=== PATIENT | female | born 1970 | race Two or more races ===

== ENCOUNTER 2025-06-26 16:49 | Inpatient (IN) | payer MEDICAID, SELFPAY ==
[2025-06-26] VITALS (12 sets, daily range): BP systolic 94–142; BP diastolic 55–82; PULSE 76–92; RESP 15–95; TEMP 35.9–36.8; O2SAT 92–99; BMI 25.5
[2025-06-26] MEDS: EPINEPHrine INJ 1 MG/ML AMP 0.3 MG IM (16:56)
[2025-06-26] MEDS: MethylPREDNISolone SOD SUCC 62.5 MG/ML 2ML VIAL 125 MG IVP (16:59)
[2025-06-26] MEDS: FAMOTIDINE INJ 10 MG/ML VIAL 2 ML 40 MG IVP (17:04)
[2025-06-26] MEDS: SODIUM CHLORIDE 0.9% 1000 ML 1,000 ML 999 ML IV (17:05)
[2025-06-26] MEDS: ALBUTEROL RT 2.5 MG/0.5 ML NEBU 10 MG INH (17:05)
--- NOTE | 2025-06-26 17:08 | PD.EDALLER ---
ED Allergic Reaction RME/HPI General Chief complaint: Allergic Reaction Stated complaint: ALLERIGIC REACTION Time Seen by Provider: 06/26/25 16:54 Source: patient and EMS Arrival date/time: 06/26/25 16:49 RME / HPI RME / HPI narrative: Patient is a 54-year-old female with no significant past medical history is in Emergency Department concerns for anaphylactic reaction. Patient states that she had a nectarine today, it was the first time that she has ever had a nectarine, immediately developed a rash, swelling in her lips and difficulty breathing. Prior to this patient felt fine. 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 Denies drugs alcohol smoking. Denies recent travel sick contacts. Per EMS they provided intramuscular epinephrine 0.4 mg as well as Benadryl because patient was hypotensive in the field, and was having difficulty breathing. MD complaint: allergic reaction Related Data Previous Rx's ?Medication ?Instructions ?Recorded amoxicillin 875 mg tablet 875 mg PO BID #20 tabs 04/02/22 Allergies Allergy/AdvReac Type Severity Reaction Status Date / Time nectarine Allergy Verified 06/26/25 16:55 No Known Drug Allergies Allergy Verified 06/26/25 16:55 ED Exam General General appearance: Present other (Patient is in distress) Head Head exam: Present atraumatic and other (Patient with hives on her face, swelling of her lower lip) Eye Eye exam: Present normal appearance, PERRL and EOMI ENT ENT exam: Present normal oropharynx and other (Swelling of her lower lip, difficulty speaking,) Neck Neck exam: Present normal inspection (Hives) and other (Stridor) Chest Chest inspection: Present symmetric chest wall rise and other (Tachypneic) Respiratory Respiratory exam: Present wheezes Cardiovascular Cardiovascular exam: Present regular rate and normal rhythm Abdominal Exam Abdominal exam: Present soft; Absent distention, tenderness, guarding, rebound or rigidity Extremities Exam Extremities exam: Present full ROM Neurological Exam Neurological exam: Present alert, CN II-XII intact and motor sensory deficit Skin Skin exam: Present warm, dry and rash (Patient with diffuse raised erythematous rash, diffuse wheals, with areas of coalescence, pruritic, upper extremities, lower extremities, abdomen, face) Course Quality Measures none Orders Category Date Time Status Admit to Inpatient Status Routine Admission 06/26/25 18:19 Active Patient Condition Routine Admission 06/26/25 18:19 Ordered Insert IV NOW Care 06/26/25 16:57 Active Miscellaneous Nursing Order NOW Care 06/26/25 18:19 Active Nurse Swallow Screen X1 Care 06/26/25 18:19 Active Diet Regular Diet 06/26/25 Breakfast Active CBC AM DRAW Lab 06/27/25 05:00 Ordered CBC Stat Lab 06/26/25 17:35 Completed CMP [Comprehensive Metabolic Panel] Stat Lab 06/26/25 17:35 Completed Comprehensive Metabolic Panel AM DRAW Lab 06/27/25 05:00 Ordered Drug Screen,Urine Stat Lab 06/26/25 17:30 Ordered HCG,Qualitative Serum Stat Lab 06/26/25 17:35 Completed UA, C/S IF [Urinalysis, C/S if Indicated] Stat Lab 06/26/25 17:23 Ordered ALBUTEROL RT 0.5ml [Proventil Rt 0.5ml] Med 06/26/25 16:57 Discontinued 10 mg .ROUTE .STK-MED ONE ALBUTEROL RT 0.5ml [Proventil Rt 0.5ml] Med 06/26/25 17:04 Discontinued 10 mg INH X1 ONE Acetaminophen Tab [Tylenol Tab] Med 06/26/25 18:19 Active 650 mg PO Q4HR PRN Albuterol/Ipratr Rt Allie [Duoneb Rt Allie] Med 06/26/25 19:00 Active 3 ml INH Q6HRRT DiphenhydrAMINE INJ [Benadryl Inj] Med 06/26/25 16:59 Discontinued 50 mg IVP X1 ONE EPINEPHrine Inj [Adrenalin Inj] Med 06/26/25 16:51 Discontinued 0.3 mg IM X1 ONE EPINEPHrine Inj [Adrenalin Inj] Med 06/26/25 17:00 Discontinued 0.5 mg IM X1 ONE Enoxaparin [Lovenox] Med 06/27/25 09:00 Active 40 mg SC QDAY Famotidine Inj [Pepcid Inj] Med 06/26/25 16:58 Discontinued 40 mg IVP X1 ONE MethylPREDNISolone.* [SoluMEDROL Inj] Med 06/26/25 16:52 Discontinued 125 mg IVP X1 ONE Ringers Lactated 1000 ml [Lactated Ringers] 1,000 ml Med 06/26/25 16:53 Discontinued IV 999 mls/hr Sodium Chloride 0.9% 1000 ml [Ns] 1,000 ml Med 06/26/25 17:03 Discontinued IV 999 mls/hr Sodium Chloride Rt Allie 0.9% [NS Rt Allie 0.9%] Med 06/26/25 17:04 Active 3 ml INH PRN PRN mg Hyd/Al Hyd/Maria Esther Susp [Maalox Susp] Med 06/26/25 18:19 Active 30 ml PO Q4HR PRN Code Status Routine Oth 06/26/25 18:19 Ordered Oxygen Delivery PRN RT 06/26/25 18:19 Active Vital Signs Vital signs: Vital Signs Pulse Rate 92 06/26/25 16:56 Blood Pressure 111/82 06/26/25 16:56 Allergic Reaction MDM Narrative MDM Narrative:: Patient is a 54-year-old female is in the emergency department with concerns for allergic reaction. Patient ate a nectarine, and developed hives difficulty breathing. Patient was transported to the emergency department. Concern for anaphylactic reaction given patient with respiratory distress and hemodynamic instability. Immediately placed patient in resuscitation room, obtain IV access. Provided intramuscular dose of epinephrine, 0.3 mg 125 mg of Solu-Medrol as well as 50 mg of IV Benadryl. Also ordered famotidine. Provided patient with a liter of fluids, and an hour-long breathing treatment of albuterol. Patient was closely monitored, symptoms significantly proved no longer having stridor, swelling on her face improved, wheals on patient's upper extremities chest abdomen also resolved. Once patient was stabilized, she stated that she took multiple Benadryl's at home and called 911 after she took the Benadryl. Unclear what the dosage was. States that she has a history of cerebral aneurysms. Unclear if they were clipped. 5:23p patient heart rate 75, blood pressure 142/61 satting at 100% receiving her breathing treatment, respiratory rate 17-20. Patient nondistressed. 5:24p discussed case with poison control given concern for amount of benadryl consumed. Given anaphylactic reaction and symptoms on presentation less likely to have toxicity. Has risk of excess sleepiness, possible agitation. If excessive agitation can give benzos. Check EKG for QRS prolongation, otherwise supportive care. Discussed case with ICU, kindly accepts patient for admission for closer monitoring given anaphylactic reaction, multiple doses of epinephrine provided, and multiple doses of Benadryl consumed throughout the day. Patient data External records reviewed:: [facility] previous records Clinical information provided by:: patient and EMS Social determinants that could affect healthcare access:: none Patient has the following chronic illnesses:: Allergies to statins. How is presenting disease/condition affected by chronic disease/condition?: caused by Evaluation data The following diagnostics were reviewed and interpreted by me:: lab results and EKG tracing(s) Lab and/or radiology exams considered but not ordered:: none Interpretation Summary: See MDM Medications / Prescriptions Medications or Prescriptions considered but not ordered:: None Medication administrations:: Medication Administration History Acetaminophen (Acetaminophen 325 Mg Tablet) 650 mg PO Q4HR PRN PRN Reason: PAIN SCALE 1-3 (mild Stop: 07/26/25 18:18 Al Hydrox/Mg Hydrox/Simethicone (Mg Hyd/Al Hyd/Maria Esther (Maalox Reg) Susp 30 Ml Udc) 30 ml PO Q4HR PRN PRN Reason: Heartburn or Upset Stomach Stop: 07/26/25 18:18 Albuterol/Ipratropium (Albuterol/Ipratropium (Duoneb) Rt Allie 3 Ml Nebu) 3 ml INH Q6HRRT HUEY Stop: 07/26/25 18:59 Last Admin: 06/26/25 18:51 Dose: 3 ml Documented By: [facility] Enoxaparin Sodium (Enoxaparin Sod Inj 40 Mg/0.4 Ml Syringe) 40 mg SC QDAY [facility] Stop: 07/11/25 08:59 Sodium Chloride (Sodium Chloride Rt Allie 0.9% 3 Ml Nebu) 3 ml INH PRN PRN PRN Reason: SOLN Stop: 07/26/25 17:03 Discontinued Medications Albuterol (Albuterol Rt 2.5 Mg/0.5 Ml Nebu) Confirm Administered Dose 10 mg .ROUTE .STK-MED ONE Stop: 06/26/25 16:58 Last Admin: 06/26/25 17:06 Dose: Not Given Documented By: [facility] Non-Admin Reason: Duplicate Medication on eMAR Albuterol (Albuterol Rt 2.5 Mg/0.5 Ml Nebu) 10 mg INH X1 ONE Stop: 06/26/25 17:05 Last Admin: 06/26/25 17:05 Dose: 10 mg Documented By: [facility] Diphenhydramine HCl (Diphenhydramine Inj 50 Mg/Ml Vial) 50 mg IVP X1 ONE Stop: 06/26/25 17:00 Last Admin: 06/26/25 17:04 Dose: 50 mg Documented By: KARY Epinephrine HCl (Epinephrine Inj 1 Mg/Ml Amp) 0.3 mg IM X1 ONE Stop: 06/26/25 16:52 Last Admin: 06/26/25 16:56 Dose: 0.3 mg Documented By: MILVIA Comments: MEDICATION PULLED FROM CRASH CART AND ADMINISTERED BY RUTHY JONES Epinephrine HCl (Epinephrine Inj 1 Mg/Ml Amp) 0.5 mg IM X1 ONE Stop: 06/26/25 17:01 Last Admin: 06/26/25 17:26 Dose: Not Given Documented By: KARY Non-Admin Reason: Cancelled by Provider Comments: MED TAKEN FROM CARSH CART AND OPEN, BUT DID NOT USE Famotidine (Famotidine Inj 10 Mg/Ml Vial 2 Ml) 40 mg IVP X1 ONE Stop: 06/26/25 16:59 Last Admin: 06/26/25 17:04 Dose: 40 mg Documented By: KARY Lactated Ringer's (Lactated Ringers) 1,000 mls @ 999 mls/hr IV .Q1H1M ONE Stop: 06/26/25 17:53 Last Admin: 06/26/25 17:26 Dose: Not Given Documented By: KARY Non-Admin Reason: Cancelled by Provider Sodium Chloride (Ns) 1,000 mls @ 999 mls/hr IV .Q1H1M ONE Stop: 06/26/25 18:03 Last Admin: 06/26/25 17:05 Dose: 999 mls/hr Documented By: KARY Methylprednisolone Sodium Succinate (Methylprednisolone Sod Succ 62.5 Mg/Ml 2ml Vial) 125 mg IVP X1 ONE Stop: 06/26/25 16:53 Last Admin: 06/26/25 16:59 Dose: 125 mg Documented By: MILVIA See above Consultations Consultation(s) initiated? (list below): Yes Consultation #1 (Physician, Specialty, Details): ICU, see MDM Diagnosis Differential Diagnosis allergic reaction: anaphylaxis Most likely diagnosis given after review of the tests above:: See MDM Admission Indicated Admission indicated?: indicated Admission Request Was there a request for admission?: Yes Admission Attestation Admission request attestation: Discussed case with Hospitalist service regarding admission. Discussed patients ED course, exam findings, labs, and radiology results. The Hospitalist [agrees] to accept the patient for admission. Disposition Plan Disposition Plan: Admit Critical Care Time Critical Care Time Total Critical Care Time (min.): 45 Attestation: Critical Care Procedure Note Due to a high probability of clinically significant, life threatening deterioration, the patient required my highest level of preparedness to intervene emergently and I personally spent this critical care time directly and personally managing the patient. This critical care time included obtaining a history; examining the patient; pulse oximetry; ordering and review of studies; arranging urgent treatment with development of a management plan; evaluation of patient's response to treatment; frequent reassessment; and, discussions with other providers. This critical care time was performed to assess and manage the high probability of imminent, life-threatening deterioration that could result in multi-organ failure. It was exclusive of separately billable procedures and treating other patients and teaching time. Please see MDM section and the rest of the note for further information on patient assessment and treatment. Discharge Plan Prescriptions/Referrals Prescriptions/Med Rec: No Action amoxicillin 875 mg tablet 875 mg PO BID Qty: 20 0RF Referrals: Sven Castle MD [Primary Care Provider] - In 1 week Problem List Clinical Impression: Anaphylaxis Patient/Caregiver Discharge Instructions Print Language: Indonesian
[2025-06-26 17:40] LABS: Basophils # (Auto) 0.0 Thou/mm3 (0.0-0.2); Basophils % (Auto) 0 % (0-2.5); Eosinophils # (Auto) 0.3 Thou/mm3 (0.0-0.5); Eosinophils % (Auto) 2 % (0-10); Hematocrit 44.0 % (36.0-46.0); Hemoglobin 14.8 g/dL (12.0-16.0); Immature Granulocytes Auto 0.10 Thou/mm3 (0.00-0.00); Lymphocytes # (Auto) 6.8 Thou/mm3 (1.0-4.8); Lymphocytes % (Auto) 31 % (10-50); Mean Corpuscular HGB Conc 33.6 g/dl (31.0-37.0); Mean Corpuscular Hemoglobin 30.3 pg (25.0-35.0); Mean Corpuscular Volume 90 fL (80-100); Monocytes # (Auto) 1.5 Thou/mm3 (0.0-0.8); Monocytes % (Auto) 7 % (0-12); Neutrophils # (Auto) 12.9 Thou/mm3 (1.8-7.7); Neutrophils % (Auto) 60 % (37-80); Nucleated Red Blood Cell # 0.00 Thou/mm3 (0.00-0.00); Nucleated Red Blood Cell % 0 /100 WBC (0); Platelet Count 262 Thou/mm3 (140-440); RDW Standard Deviation 42.5 fL (36.4-46.3); Red Blood Count 4.89 Miln/mm3 (4.00-5.20); White Blood Count 21.7 Thou/mm3 (3.6-11.0)
[2025-06-26 18:07] LABS: Alanine Aminotransferase 61 U/L (10-49); Albumin, Serum 3.7 gm/dL (3.5-5.0); Albumin/Globulin Ratio 0.8 (1.2-2.2); Alkaline Phosphatase 145 U/L (46-116); Anion Gap 10 (7-16); Aspartate Amino Transferase 97 U/L (0-34); BUN/Creatinine Ratio 13 Ratio (12-20); Bilirubin,Total 0.9 mg/dL (0.3-1.2); Blood Urea Nitrogen 10 mg/dL (9-23); Calcium 9.3 mg/dL (8.3-10.6); Calcium (Corrected) 9.5 mg/dL (8.5-10.1); Carbon Dioxide 22.3 mMol/L (20.0-31.0); Chloride 107 mMol/L (98-107); Creatinine (Component) 0.8 mg/dL (0.6-1.3); Estimated Creatinine Clearance 82.0 mL/min (>60); Globulin 4.5 gm/dL (2.3-3.5); Glucose 163 mg/dL (74-106); Osmolality,Calculated 280 (275-295); Potassium 3.2 mMol/L (3.4-5.1); Sodium 139 mMol/L (136-145); Total Protein 8.2 gm/dL (5.7-8.2); eGFR > 60 See Note
[2025-06-26 18:15] LABS: HCG,Qualitative Serum Negative
--- NOTE | 2025-06-26 18:30 | PD.RESHP ---
Documentation for date of: 06/26/25 [facility] History of Present Illness History of present illness: 54-year-old female with a past medical history of allergic-type reactions presents to the Emergency Department with concerns for anaphylaxis. The patient was feeling well until approximately one hour prior to arrival, when she ate a nectarine. Immediately after eating it today, she developed a pruritic, generalized rash, swelling of her lips, and difficulty breathing with a sensation of throat tightness. The patient reports she took three tablets of diphenhydramine (Benadryl) from a bottle that may have been , unknown doses. When her symptoms did not improve, she came to the hospital. She denies any associated dizziness, lightheadedness, abdominal pain, nausea, or vomiting. She has no prior history of being prescribed or using an EpiPen. She states she has had previous allergic-type reactions to strawberries, oranges, and peaches in the past, but none as severe as the current episode. She was evaluated in ED for a similar allergic reaction more than five years ago but has never been hospitalized for anaphylaxis. Past medical history: 3 brain aneurysm but with no intervention done Past surgical history: None Medications: None Allergies: No known drug allergy, nectarine, oranges, peaches, strawberry Social history: Active smoker half a pack a day since age 21, no alcohol use, no drug history ED course: Initial vitals include temperature 98.3, heart rate 92, respiratory rate 18, blood pressure 111/82, oxygen saturation 96% on 6 L oxy mask. Notable labs include WBC 21.7, potassium 3.2, creatinine 0.8, glucose 163, AST 97, ALT 61, alkaline phosphatase 145. Patient received epinephrine 0.3 mg IM x 1, methylprednisolone 125 mg IV x 1, famotidine 40 mg IV x 1 and Benadryl 50 mg IV x 1, sodium chloride 1 L, and albuterol 10 mg x 1. Patient admitted to ICU for close observation given excessive Benadryl use and monitoring for second wave of anaphylaxis. Review of Systems Review of Systems Narrative Review of Systems: All systems reviewed negative unless stated otherwise above. Exam Vital Signs Temp Pulse Resp BP Pulse Ox O2 Del Method O2 Flow Rate 98.3 F 76 16 142/61 H 99 Aerosol Mask 6 06/26/25 17:23 06/26/25 17:23 06/26/25 17:23 06/26/25 17:23 06/26/25 17:23 06/26/25 17:23 06/26/25 17:23 Narrative Exam General: Alert and oriented x 3, no acute distress, on 5 L via oxy mask HEENT: Normocephalic, atraumatic. Normal conjunctiva, PERRL. Oral mucosa moist. No obvious lesions in oropharynx. Cardiovascular: Regular rate and rhythm, no murmur, +S1/S2. Respiratory: Lungs are clear to auscultation, respirations unlabored, no crackles, no wheezing. Gastrointestinal: Soft, nontender, distended. No guarding or rebound tenderness. Extremities: No edema, no cyanosis, no clubbing. 2+ radial pulse bilaterally, 2+ pedal pulse bilaterally. Neuro: No focal deficits observed. Conversant, moving all extremities. No overt cerebellar signs/incoordination. Skin: Healing urticarial rash on upper and lower extremities Psychiatric: Cooperative, appropriate affect. Results: Labs 06/27/25 04:10 06/27/25 04:10 Labs: Short CBC 06/26/25 Range/Units 17:35 WBC 21.7 H (3.6-11.0) Thou/mm3 Hgb 14.8 (12.0-16.0) g/dL Hct 44.0 (36.0-46.0) % Plt Count 262 (140-440) Thou/mm3 BMP 06/26/25 17:35 Sodium 139 Potassium 3.2 L Chloride 107 Carbon Dioxide 22.3 BUN 10 Creatinine 0.8 Glucose 163 H Calcium 9.3 Liver Function 06/26/25 Range/Units 17:35 Total Bilirubin 0.9 (0.3-1.2) mg/dL AST 97 H (0-34) U/L ALT 61 H (10-49) U/L Alkaline Phosphatase 145 H (46-116) U/L Albumin 3.7 (3.5-5.0) gm/dL Quality Measures Quality Measures VTE prophylaxis Medications Home Medications and Allergies Allergies Allergy/AdvReac Type Severity Reaction Status Date / Time nectarine Allergy Severe Anaphylaxis Verified 06/27/25 00:23 orange Allergy Severe Anaphylaxis Verified 06/27/25 00:23 peach Allergy Severe Anaphylaxis Verified 06/27/25 00:23 strawberry Allergy Severe Anaphylaxis Verified 06/27/25 00:23 No Known Drug Allergies Allergy Verified 06/27/25 00:23 Visit Medications Acetaminophen (Acetaminophen 325 Mg Tablet) 650 mg PO Q4HR PRN PRN Reason: PAIN SCALE 1-3 (mild Stop: 07/26/25 18:18 Al Hydrox/Mg Hydrox/Simethicone (Mg Hyd/Al Hyd/Maria Esther (Maalox Reg) Susp 30 Ml Udc) 30 ml PO Q4HR PRN PRN Reason: Heartburn or Upset Stomach Stop: 07/26/25 18:18 Albuterol/Ipratropium (Albuterol/Ipratropium (Duoneb) Rt Allie 3 Ml Nebu) 3 ml INH Q6HRRT HUEY Stop: 07/26/25 18:59 Enoxaparin Sodium (Enoxaparin Sod Inj 40 Mg/0.4 Ml Syringe) 40 mg SC QDAY HUEY Stop: 07/11/25 08:59 Sodium Chloride (Sodium Chloride Rt Allie 0.9% 3 Ml Nebu) 3 ml INH PRN PRN PRN Reason: SOLN Stop: 07/26/25 17:03 Discontinued Medications Albuterol (Albuterol Rt 2.5 Mg/0.5 Ml Nebu) 10 mg INH X1 ONE Stop: 06/26/25 17:05 Last Admin: 06/26/25 17:05 Dose: 10 mg Diphenhydramine HCl (Diphenhydramine Inj 50 Mg/Ml Vial) 50 mg IVP X1 ONE Stop: 06/26/25 17:00 Last Admin: 06/26/25 17:04 Dose: 50 mg Epinephrine HCl (Epinephrine Inj 1 Mg/Ml Amp) 0.3 mg IM X1 ONE Stop: 06/26/25 16:52 Last Admin: 06/26/25 16:56 Dose: 0.3 mg Epinephrine HCl (Epinephrine Inj 1 Mg/Ml Amp) 0.5 mg IM X1 ONE Stop: 06/26/25 17:01 Last Admin: 06/26/25 17:26 Dose: Not Given Famotidine (Famotidine Inj 10 Mg/Ml Vial 2 Ml) 40 mg IVP X1 ONE Stop: 06/26/25 16:59 Last Admin: 06/26/25 17:04 Dose: 40 mg Lactated Ringer's (Lactated Ringers) 1,000 mls @ 999 mls/hr IV .Q1H1M ONE Stop: 06/26/25 17:53 Last Admin: 06/26/25 17:26 Dose: Not Given Sodium Chloride (Ns) 1,000 mls @ 999 mls/hr IV .Q1H1M ONE Stop: 06/26/25 18:03 Last Admin: 06/26/25 17:05 Dose: 999 mls/hr Methylprednisolone Sodium Succinate (Methylprednisolone Sod Succ 62.5 Mg/Ml 2ml Vial) 125 mg IVP X1 ONE Stop: 06/26/25 16:53 Last Admin: 06/26/25 16:59 Dose: 125 mg Assessment & Plan Plan 54-year-old female with a past medical history of allergic-type reactions presents to the Emergency Department with anaphylaxtic reaction to food. Patient admitted to ICU for close monitoring following excessive Benadryl use and for the second wave of anaphylaxis. 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 CVS: No active issues. PULM #Acute hypoxic respiratory failure Secondary to anaphylactic reaction Plan: ?Wean oxygen as tolerated ?DuoNebs every 6 hours scheduled GI: #Mild transaminitis AST 97, ALT 61, alk phos 145 No abdominal or liver tenderness Plan ?Monitor in a.m. #Nausea Secondary to anaphylaxis Plan: ? Ondansetron as needed RENAL: #Hypokalemia Secondary to vomiting due to anaphylaxis Plan: ? Replete as necessary ? Monitor in a.m. ENDO: No active issues. IMMUNE: #Anaphylaxis Secondary to nectarine use Patient has history of allergic type reaction to oranges, peaches, strawberries in the past Never has been prescribed an EpiPen Blood pressure within normal limits In ED received epinephrine 0.3 mg IM x 1, methylprednisolone 125 mg IV x 1, famotidine 40 mg IV x 1 and Benadryl 50 mg IV x 1, sodium chloride 1 L, and albuterol 10 mg x 1. Plan: ? Monitor for second wave of anaphylaxis HEME: #Leukocytosis Most likely secondary to anaphylaxis No left shift Infection not suspected at this time, no cough, no fever, no urinary symptoms Received methylprednisolone 25 mg x 1 Plan: ? Monitor CBC in a.m. ID: No active issues. Health Maintenance: Diet: Regular GI prophylaxis: None DVT prophylaxis: Enoxaparin Antibiotics: None at this stage CODE STATUS: Full Disposition: ICU for close monitoring Case discussed with my attending Dr. Mora Kent MD PGY-1 Attending Provider Attestation/Addendum Patient seen and examined with above resident, Raulito Kent MD. I agree with the findings, assessment, and plan of care as document except for any differences below. Patient seen in the emergency department after appropriate treatment course given by ED team. Patient without any evidence of ongoing anaphylaxis with normalization of blood pressure, no evidence of upper airway obstruction/hypoxia/pulmonary edema clinically, with resolving hives independent regions only. Patient reports that she has had previous reactions to fruits and did not realize that this morning when she was eating may have been from the same family. She does not have epinephrine available at home. She is accompanied by her significant other who reports that she does have significant allergies as well similar to himself. Patient has had prior evaluation for anaphylaxis but has not had any secondary reaction. However due to risk of repeat flare in the next 24 hours, patient should be monitored closely in the ICU. No immediate additional therapies at this time and can continue on antihistamines and steroids as needed. Total critical care time: I personally spent 30 minutes for review of physiologic parameters, directing plan of care throughout the day, coordination of care with other specialties, and counseling patient and family at bedside. This is exclusive of time spent teaching on staff performing a separate billable procedures. Patient remains at significant risk for further morbidity and mortality warranting close monitoring and care only available in the ICU. Critical care services required for anaphylaxis secondary to food.
[2025-06-26] MEDS: ALBUTEROL/IPRATROPIUM (Duoneb) RT SOL 3 ML NEBU INH (18:51)
[2025-06-26] MEDS: POTASSIUM CHLORIDE 10% 20 MEQ/15 ML UDC 40 MEQ PO (23:13)
[2025-06-26] MEDS: Magnesium Sulfate 2 GM Ivpb 2 GM/50 ML BAG IV (23:13)
[2025-06-27] VITALS (14 sets, daily range): BP systolic 96–121; BP diastolic 50–72; PULSE 66–86; RESP 12–98; TEMP 36.2–36.9; O2SAT 93–99
[2025-06-27] MEDS: MG HYD/AL HYD/SIME (Maalox Reg) SUSP 30 ML UDC PO (00:12)
[2025-06-27] MEDS: ALBUTEROL/IPRATROPIUM (Duoneb) RT SOL 3 ML NEBU INH ×2 (00:21→06:10)
[2025-06-27] MEDS: ONDANSETRON INJ 2 MG/ML INJ 2 ML 4 MG IVP (01:21)
[2025-06-27 06:14] LABS: Basophils # (Auto) 0.0 Thou/mm3 (0.0-0.2); Basophils % (Auto) 0 % (0-2.5); Eosinophils # (Auto) 0.0 Thou/mm3 (0.0-0.5); Eosinophils % (Auto) 0 % (0-10); Hematocrit 36.7 % (36.0-46.0); Hemoglobin 12.6 g/dL (12.0-16.0); Immature Granulocytes Auto 0.02 Thou/mm3 (0.00-0.00); Lymphocytes # (Auto) 1.5 Thou/mm3 (1.0-4.8); Lymphocytes % (Auto) 23 % (10-50); Mean Corpuscular HGB Conc 34.3 g/dl (31.0-37.0); Mean Corpuscular Hemoglobin 31.3 pg (25.0-35.0); Mean Corpuscular Volume 91 fL (80-100); Monocytes # (Auto) 0.1 Thou/mm3 (0.0-0.8); Monocytes % (Auto) 1 % (0-12); Neutrophils # (Auto) 4.7 Thou/mm3 (1.8-7.7); Neutrophils % (Auto) 75 % (37-80); Nucleated Red Blood Cell # 0.00 Thou/mm3 (0.00-0.00); Nucleated Red Blood Cell % 0 /100 WBC (0); Platelet Count 169 Thou/mm3 (140-440); RDW Standard Deviation 42.8 fL (36.4-46.3); Red Blood Count 4.03 Miln/mm3 (4.00-5.20); White Blood Count 6.3 Thou/mm3 (3.6-11.0)
[2025-06-27 06:26] LABS: Alanine Aminotransferase 49 U/L (10-49); Albumin, Serum 3.5 gm/dL (3.5-5.0); Albumin/Globulin Ratio 1.0 (1.2-2.2); Alkaline Phosphatase 116 U/L (46-116); Anion Gap 8 (7-16); Aspartate Amino Transferase 74 U/L (0-34); BUN/Creatinine Ratio 20 Ratio (12-20); Bilirubin,Total 0.5 mg/dL (0.3-1.2); Blood Urea Nitrogen 14 mg/dL (9-23); Calcium 9.5 mg/dL (8.3-10.6); Calcium (Corrected) 9.9 mg/dL (8.5-10.1); Carbon Dioxide 22.3 mMol/L (20.0-31.0); Chloride 110 mMol/L (98-107); Creatinine (Component) 0.7 mg/dL (0.6-1.3); Estimated Creatinine Clearance 104.7 mL/min (>60); Globulin 3.6 gm/dL (2.3-3.5); Glucose 139 mg/dL (74-106); Magnesium 2.1 mg/dL (1.6-2.6); Osmolality,Calculated 281 (275-295); Phosphorous 2.4 mg/dL (2.4-5.1); Potassium 4.3 mMol/L (3.4-5.1); Sodium 140 mMol/L (136-145); Total Protein 7.1 gm/dL (5.7-8.2); eGFR > 60 See Note
--- NOTE | 2025-06-27 11:03 | PC.SS ---
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 Patient already discharged from ICU.
--- NOTE | 2025-06-27 11:16 | ESDS_ITS ---
Planned Discharge Date 06/27/25 DS: Providers Provider Date of admission: 06/26/25 18:19 Primary care physician: Sven Castle MD Admitting Provider: Von Velazco MD Attending Provider on Admission: Von Velazco MD Attending Provider on DC: Von Velazco MD Discharging Provider: Von Velazco MD DS: Diagnosis Problem List Completed Was Problem List Reviewed/Reconciled?: Yes Hospital Course Hospital Course Hospital course: 54-year-old female with a past medical history of allergic-type reactions presents to the Emergency Department with anaphylaxtic reaction to nectarine. In ED, patient received epinephrine 0.3 mg IM x 1, methylprednisolone 125 mg IV x 1, famotidine 40 mg IV x 1 and Benadryl 50 mg IV x 1, sodium chloride 1 L, and albuterol 10 mg x 1. Patient was admitted to ICU for close monitoring following excessive Benadryl use and for the second wave of anaphylaxis. Vitals were stable in ICU. Patient was fine overnight and only required Zofran for nausea. Patient was stable at time of discharge and was discharged straight from ICU with EpiPen. Admission diagnosis: #Anaphylaxis Case discussed with my attending Dr. Mora Kent MD PGY-1 Time Spent with Patient Time attestation: Total time spent providing and/or coordinating discharge services: Time spent: Greater than 30 minutes Exam Vital Signs Temp Pulse Resp BP Pulse Ox O2 Del Method O2 Flow Rate 98.2 F 70 16 99/60 98 Room Air 6 06/27/25 09:44 06/27/25 09:44 06/27/25 09:44 06/27/25 09:44 06/27/25 09:44 06/27/25 09:44 06/26/25 21:42 Narrative Exam General: Alert and oriented x 3, no acute distress. HEENT: Normocephalic, atraumatic. Normal conjunctiva, PERRL. Oral mucosa moist. No obvious lesions in oropharynx. Cardiovascular: Regular rate and rhythm, no murmur, +S1/S2. Respiratory: Lungs are clear to auscultation, respirations unlabored, no crackles, no wheezing. Gastrointestinal: Soft, nontender, distended. No guarding or rebound tenderness. Extremities: No edema, no cyanosis, no clubbing. 2+ radial pulse bilaterally, 2+ pedal pulse bilaterally. Neuro: No focal deficits observed. Conversant, moving all extremities. No overt cerebellar signs/incoordination. Skin: No rash on upper and lower extremities Psychiatric: Cooperative, appropriate affect. Discharge Plan Plan Patient Disposition: HOME (Self Care) Patient condition on transfer: Stable Prescriptions/Referrals Prescriptions/Med Rec: New epinephrine 0.1 mg/0.1 mL auto-injector 0.1 ml subcut .ONCE PRN (Reason: hypersensitivity reaction) Qty: 2 0RF Referrals: Sven Castle MD [Primary Care Provider, Family Practice] - In 1 week Patient/Caregiver Discharge Instructions Discharge Activity: activity as tolerated and resume usual activities Education Materials: Anaphylactic Shock Dc, ED Anaphylaxis, ED Using an Injection Pen, Allergy Overview Print Language: Citizen Of [place] Stand Alone Forms: [employer] Award Info., Patient Portal Info Letter Discharge Order Discharge Orders: Discharge (Routine); Ordered 06/27/25 Ordered By: iDna Mcrae Quality Discharge Quality Measures VTE prophylaxis MD Attestestation MD Attestation Patient seen and examined with above resident, Raulito Kent MD. I agree with the findings, assessment, and plan of care as documented except for any differences below. Patient doing well this morning and asking to leave the hospital. Was monitored overnight for any secondary reaction due to anaphylaxis at time of presentation. Patient adequately treated with antihistamine and epinephrine. Patient with no acute complaints this morning and remained stable on room air. Patient counseled on need for EpiPen upon discharge, this was written for by the residence before she left and sent to the pharmacy of her liking. Patient should have at least 1-2 available at home in case of future reaction. Did academic counselor on avoidance of potential precipitants including fruits that can be within the same family group. Patient provided verbal understanding and appreciative of all care. Patient adequately loaded with steroids and does not need to complete a course at home. Can take antihistamines on a regular basis. Patient should follow-up with her primary care doctor in the coming week. Total discharge time: I personally spent 35 minutes for review of physiologic parameters, directing plan of care including discharge planning, and counseling patient at bedside. This is exclusive of time spent teaching of staff performing separate billable procedures. Patient remains at significant risk for further morbidity and mortality warranting close monitoring and care when available in the ICU.
== END 2025-06-27 09:59 | disposition home or self-care (01) | DRG 811 ==
LOC: SERX 18:54 → SERHOLD 06-27 05:56 → S2SX 06-27 05:56
PROVIDERS: Student in an Organized Health Care Education/Training Program; Admitting Provider Internal Medicine Critical Care Medicine; Emergency Provider Emergency Medicine; PCP Family Medicine; Visit Provider Internal Medicine Critical Care Medicine
DX: T78.04XA Anaphylactic reaction due to fruits and vegetables, initial encounter (principal); F17.210 Nicotine dependence, cigarettes, uncomplicated; J96.01 Acute respiratory failure with hypoxia; R74.01 Elevation of levels of liver transaminase levels; E87.6 Hypokalemia; D72.829 Elevated white blood cell count, unspecified; R11.2 Nausea with vomiting, unspecified; R21 Rash and other nonspecific skin eruption; L29.9 Pruritus, unspecified
CPT/HCPCS: 36415; 80053; 80307; 81001; 83735; 84100; 84703; 85025; 87081; 93225; 94640; 94644; 96361; 96374; 96375; 99283; A9270; J0166; J1200; J2405; J2919; J3475; J3490; J7030